=== PATIENT | female | born 1945 | race Caucasian/White ===

== ENCOUNTER → 2016-06-01 | Outpatient (CLI) | payer MEDICARE ==
--- NOTE | ~2016-06-01 | CT71 ---
[facility] A Service of [facility] RADIOLOGY TEXT RESULTS PATIENT: CAIN FRIAS LOCATION: [facility] : 43 UNIT #: [id number] AGE: [address]: MARIE VILA APRN SEX: F ORDER DR: [id number] [facility] [address] [place], [place] [address] [id number] O MR#: [id number] Acc #: [id number] NAME: CAIN FRIAS. : 1945 SEX: F STUDY DATE/TIME: 06/01/2016 9:57 UNIT: US ROOM: STUDY DESCRIPTION: CT Head Wo Contrast Attending Physician: Marie Vila Aprn Referring Physician: Marie Vila Aprn Ordering Physician: Isak Bernard M.D. Primary Care Physician: Isak Bernard M.D. MEDICAL IMAGING REPORT This report is preliminary unless electronic signature is present EXAM Head CT without contrast 06/01/2016 HISTORY Frequent falls for the past 6 months, dizziness and blurred vision for the past [address] exam was performed with one or more of the following radiation dose reduction techniques: automatic exposure control, adjustment of mA and/or kV according to patient size, and iterative reconstruction. FINDINGS Multiple axial images were obtained from the skull base to vertex without intravenous contrast administration. There is mild generalized atrophy. There are old lacunar infarcts in the lentiform nuclei bilaterally. There is no evidence of midline shift. There is no mass or mass effect, hemorrhage or acute infarct. The visualized paranasal sinuses are clear. IMPRESSION Mild generalized atrophy. 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 No acute intracranial abnormality. Dictated by... Gallo Ricketts M.D. THIS IS AN ELECTRONICALLY VERIFIED REPORT Gallo Ricketts M.D. at 06/02/2016 1:45 PM LIZ/melissa TD: 06/01/2016 12:12 JOB #: [id number] [facility] A Service of [facility] RADIOLOGY TEXT RESULTS PATIENT: CAIN FRIAS LOCATION: [facility] #: [id number] : 43 UNIT #: [id number] AGE: [address]: MARIE VILA APRN SEX: F ORDER DR: MEDICAL IMAGING REPORT Page 1 of 1 COPY
--- NOTE | ~2016-06-01 | US10 ---
[id number] [facility]. [facility] [address] [place], [place] [address] [id number] O MR#: [id number] Acc #: [id number] NAME: CAIN FRIAS : 1945 SEX: F STUDY DATE/TIME: 06/01/2016 11:35 UNIT: CGUS ROOM: STUDY DESCRIPTION: US Aorta Complete Attending Physician: Marie Vila Aprn Referring Physician: Marie Vila Aprn Ordering Physician: Marie Vila Aprn Primary Care Physician: Isak Bernard M.D. MEDICAL IMAGING REPORT This report is preliminary unless electronic signature is present EXAM Triple A screening DATE OF EXAMINATION: 06/01/2016 HISTORY Hypertensin, tobacco use. Hyperlipidemia, diabetic. FINDINGS The aorta at the proximal aspect measures 3.03 x 2.96 cm, mid 4.56 x 3.43 cm, distal 1.9 x 2.24 cm. The velocities of the aorta at the proximal are 40 cm/sec, mid 57 cm/sec, distal 50 cm/sec. the left iliac artery has a velocity of 60 cm/sec, and measures 1.14 x 0.89 cm. the right iliac artery has a velocity of 97 cm/sec, and measures 1.27 x 0.71 cm. IMPRESSION 1. There is an infrarenal abdominal aortic aneurysm, measuring 4.56 x 3.43 cm. It is slightly larger than 10/[address] angio. 2. No evidence of a right or left iliac artery aneurysm. Dictated by... Luke Parks M.D. THIS IS AN ELECTRONICALLY VERIFIED REPORT Luke Parks M.D. at 06/01/2016 1:30 PM Jomar TD: 06/01/2016 13:20 JOB #: [id number] MEDICAL IMAGING REPORT Page 1 of 1 COPY
== END | disposition home or self-care (01) ==
LOC: CGUS 09:28
DX: R29.6 Repeated falls (principal); I71.4 Abdominal aortic aneurysm, without rupture; G31.9 Degenerative disease of nervous system, unspecified
CPT/HCPCS: 70450; 76770

== ENCOUNTER → 2016-06-09 | Outpatient (CLI) | payer MEDICARE ==
--- NOTE | ~2016-06-09 | US37 ---
[facility] A Service of [facility] RADIOLOGY TEXT RESULTS PATIENT: CAIN FRIAS LOCATION: [facility] : 43 UNIT #: [id number] AGE: [address]: NUHA LEMUS SEX: F ORDER DR: [id number] [facility] [address] [place], [place] [address] [id number] O MR#: [id number] Acc #: [id number] NAME: CAIN FRIAS. : 1945 SEX: F STUDY DATE/TIME: 06/09/2016 12:06 UNIT: CNIV ROOM: STUDY DESCRIPTION: US Carotid W/Doppler Bilateral Attending Physician: Nuha Lemus Referring Physician: Nuha Lemus Ordering Physician: Physician Non-Staff Primary Care Physician: Isak Bernard M.D. MEDICAL IMAGING REPORT This report is preliminary unless electronic signature is present EXAM Carotid duplex scan, 06/09/2016 HISTORY Cerebrovascular accident. FINDINGS The right common carotid artery has a small amount of heterogeneous plaque. The right internal and external carotid arteries are patent with minimal plaque. Peak systolic velocity in the distal right internal carotid artery is 105 cm/sec with an end-diastolic velocity of 39 cm/sec. Peak systolic velocity in the right external carotid artery is 80 cm/sec. The right vertebral artery is patent with antegrade flow. The left common carotid artery has a small amount of heterogeneous plaque. The left internal and external carotid arteries are patent with minimal plaque. Peak systolic velocity in the mid left internal carotid artery is 103 cm/sec with an end-diastolic velocity of 37 cm/sec. Peak systolic velocity in the left external carotid artery is 90 cm/sec. The left vertebral artery is patent with antegrade flow. IMPRESSION No significant stenosis (less than 50%) in the internal and external carotid arteries bilaterally. Patent vertebral arteries bilaterally with antegrade flow. Dictated by... Paul Cedeño M.D. THIS IS AN ELECTRONICALLY VERIFIED REPORT Paul Cedeño M.D. at 06/11/2016 5:20 PM [facility] A Service of [facility] RADIOLOGY TEXT RESULTS PATIENT: CAIN FRIAS LOCATION: [facility] : 43 UNIT #: [id number] AGE: [address]: NUHA LEMUS SEX: F ORDER DR: Memo TD: 06/09/2016 20:01 JOB #: [id number] MEDICAL IMAGING REPORT Page 1 of 1 COPY
== END | disposition home or self-care (01) ==
LOC: CNIV 11:42
DX: I63.9 Cerebral infarction, unspecified (principal); I65.23 Occlusion and stenosis of bilateral carotid arteries
CPT/HCPCS: 93880